=== PATIENT | female | born 1985 | race Caucasian/White ===

== ENCOUNTER 2024-11-24 09:57 | Emergency (ER) | payer MEDICAID, SELFPAY ==
[2024-11-24 09:58] VITALS: BMI 61.2
[2024-11-24 10:09] VITALS: BP 133/85; PULSE 86; RESP 20; TEMP 36.7; O2SAT 97
--- NOTE | 2024-11-24 10:13 | EDNOTE_ITS ---
<Statement entered by Josette Leonardo MD - 12/01/24 18:13> As co-signing physician, I was present and available for consult prn. I concur with the plan and care as documented by the midlevel provider. ED Skin Abcess FB-RME/HPI General Chief complaint: Extremity Injury, Upper Stated complaint: SWOLLEN BACK OF NECK; STAPH INFECTION Time Seen by Provider: 11/24/24 10:02 Arrival date/time: 11/24/24 09:57 39-year-old female history of diabetes presents emergency department complaints of wound to the back of her scalp patient reports it is ongoing for last couple of days patient went to PCP they gave her a prescription for Keflex which she took 1 day of patient reports no improvement Limitations: no limitations Related Data Home Medications ?Medication ?Instructions ?Recorded ?Confirmed lisinopril 10 mg tablet 10 mg PO QDAY 06/27/21 06/29/21 sitagliptin phosphate 50 mg tablet 50 mg PO QDAY 06/27/21 06/29/21 (Januvia) Previous Rx's ?Medication ?Instructions ?Recorded albuterol sulfate 90 mcg/actuation 2 puff inhalation Q6H PRN 07/01/21 aerosol inhaler (ProAir HFA) shortness of breath or wheezing #6.7 grams dexamethasone 6 mg tablet 6 mg PO QDAY #6 tabs 07/01/21 (Decadron) fluticasone 250 mcg-salmeterol 50 1 puff INH BIDRT #1 ea 07/01/21 mcg/dose blistr powdr for inhalation (Advair Diskus) cephalexin 500 mg capsule 500 mg PO QID #28 caps 11/29/23 fluconazole 150 mg tablet 150 mg PO QDAY 1 dose #1 tab 11/29/23 clindamycin HCl 150 mg capsule 450 mg (3 x 150 mg) PO TID 7 days 11/24/24 #63 caps hydrocodone 5 mg-acetaminophen 325 1 tab PO BID PRN pain #10 tabs 11/24/24 mg tablet ibuprofen 800 mg tablet 800 mg PO TID PRN pain #30 tabs 11/24/24 Allergies Allergy/AdvReac Type Severity Reaction Status Date / Time sulfamethoxazole Allergy Severe Hives Verified 11/24/24 10:03 [From Bactrim] tomato Allergy Severe Rash Verified 11/24/24 10:03 trimethoprim [From Bactrim] Allergy Severe Hives Verified 11/24/24 10:03 Review of Systems Review of Systems Systems Reviewed: All systems reviewed, normal except as documented Constitutional Constitutional: Reports system reviewed and no additional complaints, except as documented, Denies fever(s) and Denies headache(s) Eyes Eyes: Reports system reviewed and no additional complaints, except as documented and Denies blurry vision ENT Ears, Nose, Mouth, and Throat: Reports system reviewed and no additional complaints, except as documented, Denies headache(s), Denies nasal congestion and Denies nasal discharge Cardiovascular Cardiovascular: Reports system reviewed and no additional complaints, except as documented, Denies chest pain and Denies dyspnea Respiratory Respiratory: Reports system reviewed and no additional complaints, except as documented, Denies chest congestion, Denies cough and Denies dyspnea Gastrointestinal Gastrointestinal: Reports system reviewed and no additional complaints, except as documented and Denies abdominal pain Integumentary/Breasts Skin/Breast: Reports system reviewed and no additional complaints, except as documented, Denies rash and Reports other (Abscess scalp) Neurologic Neurologic: Reports system reviewed and no additional complaints, except as documented, Reports as per HPI and Denies headache(s) Past Medical History Past Medical History NEUROLOGIC: Negative Neurological Disorders or Seizures CARDIAC: Positive Hypertension; Negative Cardiac Disorders or Congestive Heart Failure RESPIRATORY: Positive Asthma and Sleep Apnea; Negative Chronic Obstructive Pulmonary Disease (COPD) GASTROINTESTINAL: Positive Gastrointestinal Disorders, Hiatal Hernia and Obesity; Negative Hepatitis or Colorectal Cancer GENITOURINARY: Negative Genitourinary Disorders, Renal Disease or Prostate Cancer REPRODUCTIVE: Negative Breast Cancer or Testicular Cancer MUSCULOSKELETAL: Positive Musculoskeletal Disorders and Arthritis; Negative Bone Cancer ENDOCRINE: Positive Endocrine Disorders, Diabetes Mellitus Type 2, Hyperthyroidism and Hypothyroidism; Negative Diabetes Mellitus Type 1 HEMATOLOGIC: Negative Blood Disorders, Anemia, Leukemia, Hemophilia, Thalassemia, Sickle Cell Disease or Clotting Problems OTHER HISTORY: Positive Chicken Pox; Negative Autoimmune Disease, Blood Transfusions, Blood Transfusion Reaction, Anesthesia Reactions, MRSA, VRSA, Vancomycin-Resistant Enterococci, Human Immunodeficiency Virus (HIV), Measles, Mumps, Rubella (Faroese Measles), Pertussis, Clostridium Difficile, Breast Cancer, Cervical Cancer, Colorectal Cancer, Lung Cancer, Ovarian Cancer, Prostate Cancer or Testicular Cancer Family History FAMILY HISTORY: Positive Family Cardiac Disorders, Family Cancer and Family Surgery; Negative Family Psychiatric Problems, Family Respiratory Disorders, Family Gastrointestinal Problems or Family Anesthesia Reaction Surgical History SURGICAL: Negative Endocrine Surgery, Thyroidectomy, Ear Surgery, Abdominal Surgery, Nephrectomy, Joint Replacement, Neurologic Surgery or Mastectomy Social History SMOKING STATUS: Never smoker ED Exam General Limitations: Present no limitations General appearance: Present alert and in no apparent distress Head Head exam: Present atraumatic, normocephalic and normal inspection Eye Eye exam: Present normal appearance, PERRL and EOMI; Absent conjunctival injection ENT ENT exam: Present normal exam, normal oropharynx and mucous membranes moist Neck Neck exam: Present normal inspection, full ROM and trachea midline Chest Chest inspection: Present normal inspection and symmetric chest wall rise Respiratory Respiratory exam: Present normal lung sounds bilaterally; Absent respiratory distress Cardiovascular Cardiovascular exam: Present regular rate, normal rhythm and normal heart sounds Abdominal Exam Abdominal exam: Present soft and normal bowel sounds; Absent distention, tenderness, guarding, rebound or rigidity Extremities Exam Extremities exam: Present normal inspection and full ROM Back Exam Back exam: Present normal inspection and full ROM Neurological Exam Neurological exam: Present alert, oriented X3, CN II-XII intact, normal gait and reflexes normal; Absent motor sensory deficit Psychiatric Psychiatric exam: Present normal affect and normal mood Skin Skin exam: Present warm, dry and other (Abscess scalp) Course Quality Measures none Orders Category Date Time Status Clindamycin Vial [Cleocin vial] Med 11/24/24 10:13 Discontinued 600 mg IM X1 ONE HYDROcodone*/APAP 5/325 [[place] 5/325] Med 11/24/24 10:13 Discontinued 1 tab PO X1 ONE Ibuprofen Tab [Motrin Tab] Med 11/24/24 10:13 Discontinued 800 mg PO X1 ONE Vital Signs Vital signs: Vital Signs Temperature 98.0 F 11/24/24 10:09 Pulse Rate 86 11/24/24 10:09 Respiratory Rate 20 11/24/24 10:09 Blood Pressure 133/85 H 11/24/24 10:09 Pulse Oximetry (%) 97 11/24/24 10:09 Oxygen Delivery Method Room Air 11/24/24 10:09 O2 saturation 97% room air within normal limits Skin / Abscess / Foreign Body MDM Narrative MDM Narrative:: 39-year-old female history of diabetes presents emergency department complaints of wound to the back of her scalp patient reports it is ongoing for last couple of days patient went to PCP they gave her a prescription for Keflex which she took 1 day of patient reports no improvement On exam patient does not appear ill or toxic patient not appear in acute distress patient does not appear septic well-appearing hemodynamically stable On exam patient does appear to have an abscess to the scalp near the nape of the neck Patient given injection of antibiotics here discharged home with clindamycin Explained to patient here to return in 2 to 3 days for reevaluation for worsening symptoms or concerns to return immediately Patient data External records reviewed:: [facility] previous records Clinical information provided by:: patient Social determinants that could affect healthcare access:: none Patient has the following chronic illnesses:: See history How is presenting disease/condition affected by chronic disease/condition?: exacerbated by Evaluation data The following diagnostics were reviewed and interpreted by me:: other (specify) (N/A) Lab and/or radiology exams considered but not ordered:: Consider not ordered Interpretation Summary: N/A Medications / Prescriptions Medications or Prescriptions considered but not ordered:: Given Medication administrations:: Medication Administration History Discontinued Medications Hydrocodone Bitart/Acetaminophen (Hydrocodone/Apap 5/325 Tablet) 1 tab PO X1 ONE Stop: 11/24/24 10:14 Last Admin: 11/24/24 10:30 Dose: 1 tab Documented By: DO Clindamycin Phosphate (Clindamycin Phos Inj 150 Mg/Ml Vial 6 Ml) 600 mg IM X1 ONE Stop: 11/24/24 10:14 Last Admin: 11/24/24 10:33 Dose: 600 mg Documented By: DO Ibuprofen (Ibuprofen Tab 400 Mg Tablet) 800 mg PO X1 ONE Stop: 11/24/24 10:14 Last Admin: 11/24/24 10:30 Dose: 800 mg Documented By: DO Given Consultations Consultation(s) initiated? (list below): No Diagnosis Skin/Abscess Differential Diagnosis: abscess of skin or subcutaneous tissue and cellulitis Most likely diagnosis given after review of the tests above:: Early abscess Admission Indicated Admission indicated?: not indicated Admission Request Was there a request for admission?: No Disposition Plan Disposition Plan: Discharge Discharge Attestation Discharge Attestation: The patient and all family members were given an opportunity to ask questions and understood the discharge instructions. Discharge instructions specifically effects, indications for sooner follow up or return to the emergency department, and the expected course of current diagnosis. Patient condition: Stable Discharge Plan Plan Patient Disposition: HOME (Self Care) Disposition Comment: Stable Prescriptions/Referrals Prescriptions/Med Rec: New ibuprofen 800 mg tablet 800 mg PO TID PRN (Reason: pain) Qty: 30 0RF hydrocodone-acetaminophen 5-325 mg tablet 1 tab PO BID MDD 10 PRN (Reason: pain) Qty: 10 0RF clindamycin HCl 150 mg capsule 450 mg PO TID 7 Days Qty: 63 0RF No Action lisinopril 10 mg Tablet 10 mg PO QDAY Januvia 50 mg Tablet 50 mg PO QDAY fluticasone propion-salmeterol [Advair Diskus] 250-50 mcg/dose Blister With Device 1 puff INH BIDRT Qty: 1 0RF albuterol sulfate [ProAir HFA] 90 mcg/actuation HFA aerosol inhaler 2 puff inhalation Q6H PRN (Reason: shortness of breath or wheezing) Qty: 6.7 0RF dexamethasone [Decadron] 6 mg tablet 6 mg PO QDAY Qty: 6 0RF cephalexin 500 mg capsule 500 mg PO QID Qty: 28 0RF fluconazole 150 mg tablet 150 mg PO QDAY Qty: 1 0RF Rx Instructions: administer on day 1 of therapy Problem List Clinical Impression: Abscess of scalp Patient/Caregiver Discharge Instructions Education Materials: ED Abscess Antibiotic ... Additional Instructions: Please follow up with your primary care doctor in the next 24-48hrs for any worsening symptoms return here immediately Print Language: British Stand Alone Forms: Barbara Award Info., Work/School Release, Patient Portal Info Letter PA/[employer] Supervising Physician PA/[employer] Supervising Physician: Dr. LEONARDO
[2024-11-24] MEDS: IBUPROFEN TAB 400 MG TABLET 800 MG PO (10:30)
[2024-11-24] MEDS: HYDROcodone/APAP 5/325 TABLET 1 TAB PO (10:30)
[2024-11-24] MEDS: CLINDAMYCIN PHOS INJ 150 MG/ML VIAL 6 ML 600 MG IM (10:33)
== END 2024-11-24 10:57 | disposition home or self-care (01) ==
LOC: SERX 10:27
PROVIDERS: Emergency Provider Emergency Medicine; PCP Family Medicine
DX: L02.811 Cutaneous abscess of head [any part, except face] (principal); E11.9 Type 2 diabetes mellitus without complications
CPT/HCPCS: 96372; 99283; J0736; A9270

== ENCOUNTER → 2025-05-14 | Outpatient (CLI) | payer MEDICAID, SELFPAY ==
--- NOTE | 2025-05-14 08:39 | XR_ITS ---
Examination: Esophagram standard Fluoroscopy 25 fluoroscopic films of the esophagus Upright PA chest single view Soft tissue lateral neck upright single view Date and time: May 14, 2025 0940 hours INDICATIONS: History umbilical hernia bowel obstruction with surgery one to 2 years ago, bariatric surgery clearance. Technique an findings: Upright PA chest demonstrates normal heart size, lungs are clear. Early degenerative disc disease single lateral cervical spine view at the C5-C6 level with mild cervical spondylosis Normal epiglottis 20 spot fluoroscopic films of the esophagus Primary peristaltic esophageal waves No constricting esophageal lesion No esophageal ulceration Negative for gastroesophageal reflux IMPRESSION: Negative esophagram 20 spot fluoroscopic films of the esophagus Fluoroscopy 0.15 minute
== END | disposition home or self-care (01) ==
PROVIDERS: PCP Surgery
DX: E66.01 Morbid (severe) obesity due to excess calories (principal); Z76.89 Persons encountering health services in other specified circumstances
CPT/HCPCS: 74220; A4649

== ENCOUNTER → 2025-08-29 | Outpatient (CLI) | payer MEDICAID, SELFPAY ==
--- NOTE | 2025-08-29 | XR_ITS ---
EXAMINATION: Right knee 2 views TECHNIQUE: AP lateral right knee 2 views Date and time: August 29, 2025, 12:14 p.m. INDICATIONS: Right knee pain beginning 1 month ago. FINDINGS: Moderate to advanced right knee tricompartment osteoarthritis, including severe narrowing medial joint space No fracture Small knee effusion IMPRESSION: Moderate to advanced right knee tricompartment osteoarthritis including severe narrowing medial joint space
== END | disposition home or self-care (01) ==
PROVIDERS: PCP Family Medicine; Referring Provider Family Medicine; Visit Provider Family Medicine
DX: M17.11 Unilateral primary osteoarthritis, right knee (principal); M25.861 Other specified joint disorders, right knee
CPT/HCPCS: 73560